=== PATIENT | female | born 1945 | race Caucasian/White ===

== ENCOUNTER 2018-12-08 13:19 | Outpatient (CLI) | payer MEDICARE ==
--- NOTE | 2018-12-08 14:43 | BD ---
Exam: DEXA Bone Density 12/08/18 HISTORY: 73-year-old postmenopausal female for screening. COMPARISON: 08/13/16 Lumbar Spine: BMD (g/cm2) T-SCORE L1 0.921 -0.6 L2 1.018 -0.1 L3 1.296 1.9 L4 1.246 1.7 L1-L4 1.131 0.8 Right Femoral Neck: 0.586 -2.4 Total Proximal Femur: 0.717 -1.8 Impression: Osteopenia. When compared to the prior examination, the bone density in the spine has increased appr oximately 6%. The bone density in the hip has not changed significantly. POS: [facility]
== END 2018-12-08 13:20 | disposition home or self-care (01) ==
LOC: BICMAMMO 13:19
PROVIDERS: ATTEND Family Medicine
DX: M81.0 Age-related osteoporosis without current pathological fracture (principal); M85.851 Other specified disorders of bone density and structure, right thigh
CPT/HCPCS: 77080

== ENCOUNTER 2019-12-09 07:34 | Outpatient (CLI) | payer MEDICARE ==
--- NOTE | 2019-12-09 10:27 | CT ---
CT ABDOMEN AND PELVIS WITH ORAL AND IV CONTRAST: HISTORY: Generalized abdominal pain. Vomiting, diarrhea, and dizziness. COMPARISON: None. FINDINGS: The lung bases are unremarkable. There are bilateral breast implants with peripheral calcification. There is incomplete visualization of cystic mass in the right pericardiac region measuring about 2. 4 cm. The liver, spleen, pancreas, adrenal glands, and left kidney are normal. There is a tiny low- density lesion in the right kidney, likely a cyst. No calcified gallstones are seen. No free air, free fluid, or lymphadenopathy identified in the abdomen or pelvis. There are vascular calcifications without evidence of aneurysmal dilatation of the abdominal aorta. There are degenerat margarita changes in the spine. Postop changes and metallic hardware are seen in the left proximal femur. The small bowel loops are not abnormally dilated. There is sigmoid diverticulosis. There is mild in flammatory change surrounding the proximal sigmoid colon. Uterus is present. There is a 2 cm cyst i n the left ovary. A small hiatal hernia is present. IMPRESSION: 1. Sigmoid diverticulosis with probable diverticulitis. A colonoscopy should be performed after karolina atment to exclude underlying mass. 2. Small hiatal hernia. POS: [facility]
[2019-12-09] MEDS ORDERED: Iopamidol-370 76% 500 ML 1 ML ONE (10:29)
== END 2019-12-09 07:35 | disposition home or self-care (01) ==
LOC: BICCT 07:34
PROVIDERS: ATTEND Physician Assistant
DX: R10.84 Generalized abdominal pain (principal); K57.30 Diverticulosis of large intestine without perforation or abscess without bleeding; K44.9 Diaphragmatic hernia without obstruction or gangrene
CPT/HCPCS: 74177; Q9967

== ENCOUNTER 2021-09-09 10:08 | Outpatient (CLI) | payer MEDICARE | END 2021-09-09 10:09 | disposition home or self-care (01) | LOC: MRI 10:08 | PROVIDERS: ATTEND Family Medicine | DX: R42 Dizziness and giddiness (principal); I67.89 Other cerebrovascular disease | CPT/HCPCS: 70553 ==